=== PATIENT | male | born 1955 | race Caucasian/White ===

== ENCOUNTER → 2016-08-12 | Outpatient (CLI) | payer OTHER ==
--- NOTE | 2016-08-12 17:07 | DIAGNOSTIC IMAGING REPORT ---
PROCEDURE: US BILATERAL CAROTID DOPPLER INDICATION: DIZZY WITH NECK TENSION TECHNIQUE: Color Doppler duplex imaging of the carotid and vertebral vessels. COMPARISON: None. FINDINGS: Mild plaque formation of the bifurcations bilaterally. Vessels are patent. Right common carotid artery peak systolic velocity 89 cm/second. Right internal carotid artery peak systolic velocity 117 cm/second. Right external carotid artery peak systolic velocity 109 cm/second. Right kitvexmd-hm-hqhatw carotid artery ratio 1.3 Right vertebral artery peak systolic velocity 44 cm/second antegrade. Left common carotid artery peak systolic velocity 99 cm/second. Left internal carotid artery peak systolic velocity 97 cm/second. Left external carotid artery peak systolic velocity 110 cm/second. Left mcfsznxf-af-cifhxx carotid artery ratio 0.9 Left vertebral artery peak systolic velocity 52 cm/second antegrade. IMPRESSION: 1. Mild plaque formation of the bifurcations bilaterally 2. Bilateral ICA 16-49% stenosis Velocity criteria are extrapolated from diameter data as defined by the Society of Rad[employer]ologists in Ultrasound Consensus Conference, Radiology 2003; 229; 340-346.
--- NOTE | 2016-08-12 17:07 | DIAGNOSTIC IMAGING REPORT ---
PROCEDURE: US BILATERAL CAROTID DOPPLER INDICATION: DIZZY WITH NECK TENSION TECHNIQUE: Color Doppler duplex imaging of the carotid and vertebral vessels. COMPARISON: None. FINDINGS: Mild plaque formation of the bifurcations bilaterally. Vessels are patent. Right common carotid artery peak systolic velocity 89 cm/second. Right internal carotid artery peak systolic velocity 117 cm/second. Right external carotid artery peak systolic velocity 109 cm/second. Right uxacdmwv-fa-uaisgq carotid artery ratio 1.3 Right vertebral artery peak systolic velocity 44 cm/second antegrade. Left common carotid artery peak systolic velocity 99 cm/second. Left internal carotid artery peak systolic velocity 97 cm/second. Left external carotid artery peak systolic velocity 110 cm/second. Left cpmxlwtz-oj-wtrfdf carotid artery ratio 0.9 Left vertebral artery peak systolic velocity 52 cm/second antegrade. IMPRESSION: 1. Mild plaque formation of the bifurcations bilaterally 2. Bilateral ICA 16-49% stenosis Velocity criteria are extrapolated from diameter data as defined by the [employer] of [employer]iologists in Ultrasound Consensus Conference, Radiology 2003; 229; 340-346.
== END ==
LOC: US SRH 15:57
DX: R42 Dizziness and giddiness (principal); M43.6 Torticollis